=== PATIENT | male | born 1990 | race Caucasian/White ===

== ENCOUNTER 2018-04-22 15:44 | Emergency (ER) | payer MEDICAID, OTHER ==
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
[2018-04-22 15:52] VITALS: BP 165/87
[2018-04-22] MEDS ORDERED: SKIN ADHESIVE (DERMABOND) 1 EACH TP ONE (15:53)
== END 2018-04-22 16:02 | disposition home or self-care (01) ==
PROC: 0HQ1XZZ Repair Face Skin, External Approach (ICD-10-PCS; principal; 2018-04-22)
DX: S01.111A Laceration without foreign body of right eyelid and periocular area, initial encounter (principal); Y04.0XXA Assault by unarmed brawl or fight, initial encounter; Y92.149 Unspecified place in prison as the place of occurrence of the external cause; Y93.89 Activity, other specified; J45.909 Unspecified asthma, uncomplicated; F17.210 Nicotine dependence, cigarettes, uncomplicated